=== PATIENT | female | born 1955 | race Caucasian/White ===

== ENCOUNTER 2020-11-08 23:16 | Inpatient (IN) | payer OTHER ==
[~2020-11-08] VITALS: Ht 154.9 cm; Wt 102.1 kg
[~2020-11-08 23:16] MED LIST: ACCUPRIL40 MG PO; AMITRIPTYLINE100 MG PO; APIDRA SOL100 UNIT/1 SQ; BUSPIRONE HCL15 MG PO; BYDUREON P2 MG/0.65 SQ; CLEOCIN HCL300 MG PO; COUMADIN5 MG PO; DECADRON6 MG PO; DIFLUCAN150 MG PO; ELAVIL 50 MG TA50 MG PO; FEXOFENADINE HC60 MG PO; FLONASE ALLER15.8 ML; FLORASTOR250 MG PO; FLUOXETINE HCL10 M1 PO; FOLIC ACID0.4 MG PO; FUROSEMIDE40 MG PO; GABAPENTIN800 MG PO; GLUCOPHAGE1000 MG PO; HYDROCHLOROTHIA25 MG PO; HYDROXYZINE HCL50 MG PO; IRON325 M1 PO; JANUVIA100 MG PO; KEFLEX CAP 500500 MG PO; KLOR-CON 1010 MEQ PO; LANTUS SOL100 UNIT/1 SQ; LASIX20 MG PO; LIPITOR TAB 2020 MG PO; NITROSTAT0.4 MG SL; OMNICEF 300 MG300 MG PO; PLAVIX 75 MG TA75 MG PO; PRAVASTATIN SOD40 MG PO; QUINAPRIL HCL40 MG PO; RANEXA500 MG PO; SINGULAIR10 MG PO; TAMIFLU75 MG PO; TESSALON PERLE100 MG PO; TOPROL XL100 MG PO; VANCOMYCIN HCL1 GM IV; VENTOLIN HFA 66.7 GM INH; VIBRAMYCIN100 MG PO; VITAMIN B-121000 MCG PO; VITAMIN D250000 UNIT PO; VITAMIN D350000 UNIT PO; WARFARIN SODIUM1 MG PO; WARFARIN SODIUM4 MG PO
[2020-11-09 00:05] LABS: HEMOGLOBIN 12.1 gm/dl (12.3-15.3); RED BLOOD COUNT 3.91 M/UL (4.00-5.10); WHITE BLOOD COUNT 14.6 K/UL (4.5-11.0)
[2020-11-09 00:21] LABS: BUN/CREATININE RATIO 18 (0-10)
[2020-11-09 09:43] LABS: BORDETELLA PARAPERTUSSIS Not Detected (Not Detectd); BORDETELLA PERTUSSIS Not Detected (Not Detectd); CHLAMYDIA PNEUMONIAE Not Detected (Not Detectd); CORONAVIRUS HKU1 Not Detected (Not Detectd); CORONAVIRUS NL63 Not Detected (Not Detectd); CORONAVIRUS OC43 Not Detected (Not Detectd); CORONOAVIRUS 229E Not Detected (Not Detectd); HUMAN METAPNEUMOVIRUS Not Detected (Not Detectd); HUMAN RHINOVIRUS/ENTEROVIRUS Not Detected (Not Detectd); INFLUENZA A Not Detected (Not Detectd); INFLUENZA B Not Detected (Not Detectd); MYCOPLASMA PNEUMONIAE Not Detected (Not Detectd); PARAINFLUENZA VIRUS 1 Not Detected (Not Detectd); PARAINFLUENZA VIRUS 2 Not Detected (Not Detectd); PARAINFLUENZA VIRUS 3 Not Detected (Not Detectd); PARAINFLUENZA VIRUS 4 Not Detected (Not Detectd); RESPIRATORY SYNCYTIAL VIRUS Not Detected (Not Detectd)
[2020-11-09 11:12] LABS: SARS-CoV-2 NOT DETECTED (Not Detectd)
[2020-11-10 04:28] LABS: HEMOGLOBIN 10.6 gm/dl (12.3-15.3)
[2020-11-10 04:34] LABS: RED BLOOD COUNT 3.44 M/UL (4.00-5.10); WHITE BLOOD COUNT 10.4 K/UL (4.5-11.0)
[2020-11-11 06:37] LABS: RED BLOOD COUNT 3.61 M/UL (4.00-5.10)
[2020-11-12 04:56] LABS: HEMOGLOBIN 11.1 gm/dl (12.3-15.3); RED BLOOD COUNT 3.67 M/UL (4.00-5.10); WHITE BLOOD COUNT 9.7 K/UL (4.5-11.0)
[2020-11-13 04:53] LABS: HEMOGLOBIN 10.6 gm/dl (12.3-15.3); RED BLOOD COUNT 3.48 M/UL (4.00-5.10)
[2020-11-13 04:54] LABS: WHITE BLOOD COUNT 5.3 K/UL (4.5-11.0)
[2020-11-14 04:32] LABS: RED BLOOD COUNT 3.56 M/UL (4.00-5.10); WHITE BLOOD COUNT 5.4 K/UL (4.5-11.0)
[2020-11-15 05:34] LABS: HEMOGLOBIN 10.6 gm/dl (12.3-15.3); RED BLOOD COUNT 3.43 M/UL (4.00-5.10); WHITE BLOOD COUNT 4.9 K/UL (4.5-11.0)
[2020-11-15 06:19] LABS: BUN/CREATININE RATIO 44 (0-10)
[2020-11-16 04:56] LABS: HEMOGLOBIN 11.3 gm/dl (12.3-15.3); RED BLOOD COUNT 3.68 M/UL (4.00-5.10); WHITE BLOOD COUNT 4.8 K/UL (4.5-11.0)
[2020-11-16 05:14] LABS: BUN/CREATININE RATIO 46 (0-10)
[2020-11-17 04:48] LABS: HEMOGLOBIN 11.8 gm/dl (12.3-15.3); RED BLOOD COUNT 3.88 M/UL (4.00-5.10)
[2020-11-17 04:55] LABS: WHITE BLOOD COUNT 8.9 K/UL (4.5-11.0)
[2020-11-17 05:19] LABS: BUN/CREATININE RATIO 50 (0-10)
[2020-11-18 05:07] LABS: BUN/CREATININE RATIO 54 (0-10)
[2020-11-18 05:09] LABS: HEMOGLOBIN 11.3 gm/dl (12.3-15.3); RED BLOOD COUNT 3.74 M/UL (4.00-5.10); WHITE BLOOD COUNT 10.6 K/UL (4.5-11.0)
[2020-11-19 05:15] LABS: HEMOGLOBIN 11.6 gm/dl (12.3-15.3); RED BLOOD COUNT 3.92 M/UL (4.00-5.10); WHITE BLOOD COUNT 13.2 K/UL (4.5-11.0)
[2020-11-19 05:33] LABS: BUN/CREATININE RATIO 46 (0-10)
[2020-11-20 05:05] LABS: BUN/CREATININE RATIO 54 (0-10)
[2020-11-21 05:50] LABS: WHITE BLOOD COUNT 13.3 K/UL (4.5-11.0)
[2020-11-21 05:56] LABS: RED BLOOD COUNT 2.92 M/UL (4.00-5.10)
[2020-11-21 05:57] LABS: HEMOGLOBIN 8.9 gm/dl (12.3-15.3)
[2020-11-21 06:12] LABS: BUN/CREATININE RATIO 57 (0-10)
[2020-11-22 03:53] LABS: HEMOGLOBIN 9.3 gm/dl (12.3-15.3); RED BLOOD COUNT 2.95 M/UL (4.00-5.10); WHITE BLOOD COUNT 15.7 K/UL (4.5-11.0)
[2020-11-22 04:21] LABS: BUN/CREATININE RATIO 52 (0-10)
[2020-11-23 03:53] LABS: HEMOGLOBIN 8.5 gm/dl (12.3-15.3); RED BLOOD COUNT 2.78 M/UL (4.00-5.10); WHITE BLOOD COUNT 12.8 K/UL (4.5-11.0)
[2020-11-23 04:06] LABS: BUN/CREATININE RATIO 57 (0-10)
[2020-11-24 04:23] LABS: HEMOGLOBIN 8.7 gm/dl (12.3-15.3); RED BLOOD COUNT 2.81 M/UL (4.00-5.10); WHITE BLOOD COUNT 12.8 K/UL (4.5-11.0)
[2020-11-24 04:43] LABS: BUN/CREATININE RATIO 61 (0-10)
[2020-11-25 05:43] LABS: HEMOGLOBIN 8.9 gm/dl (12.3-15.3); RED BLOOD COUNT 2.9 M/UL (4.00-5.10); WHITE BLOOD COUNT 10.7 K/UL (4.5-11.0)
[2020-11-25 06:03] LABS: BUN/CREATININE RATIO 55 (0-10)
[2020-11-26 04:54] LABS: HEMOGLOBIN 9.8 gm/dl (12.3-15.3); RED BLOOD COUNT 3.14 M/UL (4.00-5.10); WHITE BLOOD COUNT 10.7 K/UL (4.5-11.0)
[2020-11-26 05:20] LABS: BUN/CREATININE RATIO 52 (0-10)
[2020-11-27 04:59] LABS: HEMOGLOBIN 10.7 gm/dl (12.3-15.3)
[2020-11-27 05:00] LABS: RED BLOOD COUNT 3.63 M/UL (4.00-5.10); WHITE BLOOD COUNT 21.7 K/UL (4.5-11.0)
[2020-11-28 05:29] LABS: HEMOGLOBIN 9.1 gm/dl (12.3-15.3)
[2020-11-28 05:36] LABS: RED BLOOD COUNT 2.92 M/UL (4.00-5.10); WHITE BLOOD COUNT 8.7 K/UL (4.5-11.0)
[2020-11-29 07:23] LABS: HEMOGLOBIN 8.5 gm/dl (12.3-15.3); RED BLOOD COUNT 2.82 M/UL (4.00-5.10); WHITE BLOOD COUNT 6.8 K/UL (4.5-11.0)
[2020-11-30 05:45] LABS: HEMOGLOBIN 8.3 gm/dl (12.3-15.3); RED BLOOD COUNT 2.86 M/UL (4.00-5.10)
[2020-11-30 06:11] LABS: BUN/CREATININE RATIO 49 (0-10)
[2020-11-30 18:42] LABS: BUN/CREATININE RATIO 45 (0-10)
[2020-12-01 04:44] LABS: ADENOVIRUS F 40/41 Not Detected (Negative); ASTROVIRUS Not Detected (Negative); CAMPYLOBACTER Not Detected (Negative); CLOSTRIDIUM DIFFICILE TOX A/B Not Detected (Negative); CRYPTOSPORIDIUM Not Detected (Negative); E.COLI 0157 Not Detected (Negative); ENTAMOEBA HISTOLYTICA Not Detected (Negative); ENTEROAGGREGATIVE E.COLI (EAEC Not Detected (Negative); ENTEROPATHOGENIC E.COLI (EPEC) Not Detected (Negative); ENTEROTOXIGENIC E.COLI (ETEC) Not Detected (Negative); GIARDIA LAMBLIA Not Detected (Negative); NOROVIRUS GI/GII Not Detected (Negative); PLESIOMONAS SHIGELLOIDES Not Detected (Negative); ROTOVIRUS A Not Detected (Negative); SALMONELLA Not Detected (Negative); SAPOVIRUS Not Detected (Negative); SHIG/ENTEROINVAS.ECOLI (EIEC) Not Detected (Negative); SHIGA-LIK TOX.PRO.E.COLI (STEC Not Detected (Negative); VIBRIO Not Detected (Negative); VIBRIO CHOLERAE Not Detected (Negative); YERSINIA ENTEROCOLITICA Not Detected (Negative)
[2020-12-01 05:32] LABS: BUN/CREATININE RATIO 45 (0-10)
[2020-12-02 04:50] LABS: HEMOGLOBIN 8.7 gm/dl (12.3-15.3); RED BLOOD COUNT 2.91 M/UL (4.00-5.10)
[2020-12-02 04:53] LABS: WHITE BLOOD COUNT 12.3 K/UL (4.5-11.0)
[2020-12-02 05:05] LABS: BUN/CREATININE RATIO 35 (0-10)
[2020-12-03 04:55] LABS: HEMOGLOBIN 9.8 gm/dl (12.3-15.3); RED BLOOD COUNT 3.24 M/UL (4.00-5.10); WHITE BLOOD COUNT 10.8 K/UL (4.5-11.0)
[2020-12-03 05:20] LABS: BUN/CREATININE RATIO 26 (0-10)
--- NOTE | 2020-12-06 18:43 | NUR ---
PT REQUEST PT BE DNR/DNI HER WISHES
[2020-12-07 05:07] LABS: HEMOGLOBIN 10.1 gm/dl (12.3-15.3); RED BLOOD COUNT 3.33 M/UL (4.00-5.10); WHITE BLOOD COUNT 12.4 K/UL (4.5-11.0)
[2020-12-07 05:26] LABS: BUN/CREATININE RATIO 34 (0-10)
[2020-12-09] MEDS ORDERED: LANTUS INS100 UTS/M1 SC (17:06)
[2020-12-09] MEDS ORDERED: HUMALOG 10100 UNITS/ SC (17:06)
[2020-12-10 11:01] LABS: RED BLOOD COUNT 3.91 M/UL (4.00-5.10); WHITE BLOOD COUNT 16.6 K/UL (4.5-11.0)
--- NOTE | 2020-12-10 18:35 | NUR ---
PATIENT COUGHING OUT THICK YELLOW SPUTUM. UNABLE TO EXPECTORATE SPUTUM- SUCTION NEEDED
[2020-12-11 03:28] LABS: RED BLOOD COUNT 3.87 M/UL (4.00-5.10); WHITE BLOOD COUNT 16.1 K/UL (4.5-11.0)
--- NOTE | 2020-12-11 06:20 | NUR ---
TELE CALLED AND STATED THE PT'S PULSE OX WAS ABNORMAL AND APPEARED TO BE CUTTING IN AND OUT. I WENT TO CHECK ON THE PT AND CHECKED FOR A PULSE. I MONITORTED THE PULSE FOR ONE MINUTE AND FELT NO HEART TONES. I THEN CALLED FOR IRVIN ISLAS RN TO COME IN AND VERIFY. HE ALSO FELT FOR A PULSE FOR ONE MINUTE. NO HEART TONES FELT. VERIFIED NO RESPIRATIONS FOR APPROXIMATELY ONE MINUTE. TIME OF WAS PRONOUNCED AT 0535 BY ANOOP GONG RN AND IRVIN ISLAS RN. DR. JACKSON WAS NOTIFIED AT 0545 PRISCILLA WAS NOTIFIED AT 0550 FAMILY NOTIFIED; FAMILY NOT IN DECISION OF WHAT HOME TO USE SO THEY ARE SUPPOSED TO TALK IT THROUGH TOGETHER AND CALL THE HOSPITAL BACK. POST MORTEM CARE PERFORMED BY [facility]'Mick REDDY
--- NOTE | 2020-12-11 06:38 | NUR ---
UPON ARRIVAL TO SHIFT PT WAS SOUNDING VERY WET. THE PT O2 SATS DROPPED DOWN INTO THE 60'S ON 7L HI KALYN NC. I INCREASED THE O2 TO 10L HI KALYN NC AND IT DIDN'T INCREASE MUCH ONLY TO APPROX 70'S. I THEN CALLED RESPIRATORY TO NASAL SUCTION THE PT; JONES AND OLEG FROM [facility] TRIED TO SUCTION THROUGH THE NOSE BUT COULD NOT PASS THROUGH. WE THEN SUCTIONED THE PT IN THE THROAT AND GOT UP THICK CREAM. I STOPPED THE TUBE FEEDING. WE THEN SUCTIONED THE PT A FEW MORE TIMES AND CLEARED HER THROAT. I THEN CLEANED HER MOUTH WITH ORAL CARE SWABS. WE THEN HAD TO PUT THE PT ON A BI PAP AT 100% AND SHE CAME UP INTO THE 90'S AND REMAINED THAT WAY THROUGHOUT THE NIGHT. PT WAS ABLE TO BREATHE BETTER AND BREATH SOUNDS WERE BETTER AND NOT WET. SEE OTHER NOTE FOR TIME OF .
== END 2020-12-11 05:35 | disposition expired | DRG 870 ==
LOC: ER1 23:16 → 2 EAST 11-09 02:43 → PROG CARE 11-09 02:43 → CDU 11-09 02:43 → M/S 11-09 02:43 → PROG CARE 11-09 04:38 → 2 EAST 11-10 21:48 → PROG CARE 12-03 10:21 → M/S 12-06 02:41
PROVIDERS: Family Medicine; Internal Medicine; Internal Medicine Infectious Disease; Internal Medicine Pulmonary Disease; ADMIT Internal Medicine
PROC: 8E0ZXY6 Isolation (ICD-10-PCS; 2020-11-09)
PROC: 5A09457 Assistance with Respiratory Ventilation, 24-96 Consecutive Hours, Continuous Positive Airway Pressure (ICD-10-PCS; 2020-11-09)
PROC: B24BZZZ Ultrasonography of Heart with Aorta (ICD-10-PCS; 2020-11-10)
PROC: 5A1955Z Respiratory Ventilation, Greater than 96 Consecutive Hours (ICD-10-PCS; principal; 2020-11-12)
PROC: 0BH17EZ Insertion of Endotracheal Airway into Trachea, Via Natural or Artificial Opening (ICD-10-PCS; 2020-11-12)
PROC: 05HM33Z Insertion of Infusion Device into Right Internal Jugular Vein, Percutaneous Approach (ICD-10-PCS; 2020-11-12)
PROC: B543ZZA Ultrasonography of Right Jugular Veins, Guidance (ICD-10-PCS; 2020-11-12)
PROC: 3E0G76Z Introduction of Nutritional Substance into Upper GI, Via Natural or Artificial Opening (ICD-10-PCS; 2020-11-12)
PROC: 0DH63UZ Insertion of Feeding Device into Stomach, Percutaneous Approach (ICD-10-PCS; 2020-12-09)
DX: A41.89 Other specified sepsis (principal); U07.1 COVID-19; J80 Acute respiratory distress syndrome; J15.212 Pneumonia due to Methicillin resistant Staphylococcus aureus; G93.41 Metabolic encephalopathy; E66.2 Morbid (severe) obesity with alveolar hypoventilation; Z68.41 Body mass index [BMI] 40.0-44.9, adult; N17.9 Acute kidney failure, unspecified; I47.1 Supraventricular tachycardia; E87.1 Hypo-osmolality and hyponatremia; E87.0 Hyperosmolality and hypernatremia; R65.20 Severe sepsis without septic shock; E11.51 Type 2 diabetes mellitus with diabetic peripheral angiopathy without gangrene; I49.5 Sick sinus syndrome; D69.6 Thrombocytopenia, unspecified; E78.5 Hyperlipidemia, unspecified; I87.8 Other specified disorders of veins; K76.0 Fatty (change of) liver, not elsewhere classified; I25.10 Atherosclerotic heart disease of native coronary artery without angina pectoris; I48.91 Unspecified atrial fibrillation; I12.9 Hypertensive chronic kidney disease with stage 1 through stage 4 chronic kidney disease, or unspecified chronic kidney disease; T38.0X5A Adverse effect of glucocorticoids and synthetic analogues, initial encounter; R91.8 Other nonspecific abnormal finding of lung field; E11.621 Type 2 diabetes mellitus with foot ulcer; R19.7 Diarrhea, unspecified; R13.10 Dysphagia, unspecified; N18.30 Chronic kidney disease, stage 3 unspecified; E11.65 Type 2 diabetes mellitus with hyperglycemia; E11.22 Type 2 diabetes mellitus with diabetic chronic kidney disease; Z86.718 Personal history of other venous thrombosis and embolism; Z95.1 Presence of aortocoronary bypass graft; Z95.0 Presence of cardiac pacemaker; Z90.49 Acquired absence of other specified parts of digestive tract; Z98.51 Tubal ligation status; Z88.5 Allergy status to narcotic agent; Z83.3 Family history of diabetes mellitus; Z79.01 Long term (current) use of anticoagulants; Z79.4 Long term (current) use of insulin; Z79.899 Other long term (current) drug therapy
CPT/HCPCS: ECHO; 36415; 36600; 70450; 71045; 74018; 76000; 76700; 80048; 80053; 80202; 81001; 82140; 82550; 82553; 82728; 82803; 82962; 83036; 83605; 83615; 83735; 83880; 84100; 84132; 84439; 84443; 84484; 85007; 85025; 85027; 85379; 85384; 85610; 86140; 87040; 87070; 87077; 87086; 87186; 87205; 87507; 87633; 93005; 93306; 93971; 94002; 94003; 94640; 94660; 94664; 94760; 96365; 96366; 96368; 96375; 99285; A6212; C9113; J0330; J0690; J1100; J1205; J1265; J1335; J1630; J1650; J1940; J2060; J2185; J2250; J2270; J2543; J2704; J2920; J2930; J3010; J3370; J3410; J3486; J7030; J7040; J7050; J7070; P9047; U0002